=== PATIENT | female | born 1945 | race Caucasian/White ===

== ENCOUNTER 2022-12-20 05:22 | Day surgery (SDC) | payer OTHER ==
[~2022-12-20 05:22] MED LIST: COZAAR25 MG PO; GABAPENT PO; INDERAL PO; LEVAQUIN500 MG PO; NORVASC10 MG PO; SINGULAIR10 MG PO; ULTRACET PO; VITAMIN D PO; [UNRECOGNIZED DRUG - OTHER] IH
[2022-12-20] MEDS ORDERED: CIPRO250 MG PO (13:22)
== END 2022-12-20 16:35 | disposition home or self-care (01) ==
LOC: CIR.AMB 05:22
PROVIDERS: ATTEND Obstetrics & Gynecology Gynecology
DX: N32.81 Overactive bladder (principal); R15.9 Full incontinence of feces; N39.41 Urge incontinence; N31.9 Neuromuscular dysfunction of bladder, unspecified; T85.193A Other mechanical complication of implanted electronic neurostimulator, generator, initial encounter; R35.0 Frequency of micturition; Z88.0 Allergy status to penicillin; Z20.822 Contact with and (suspected) exposure to COVID-19
CPT/HCPCS: 64590; 95972; C1767